=== PATIENT | female | born 1955 | race Caucasian/White ===

== ENCOUNTER 2018-12-27 09:42 | Inpatient (IN) ==
[~2018-12-27 09:42] MED LIST: Total Joint Mixture (50 ml) IR ONE
--- NOTE | 2018-12-27 10:06 | Anesthesia Evaluation PreOp ---
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) Other Medical History: Thyroid (Hypo), Other (Vit D Def.) Anesthesia History: No Prior Anesthetic Complications, Past Anesthesia (S/P R- TKR, MARISELA, D&C, Tubal, Bladder Lift, T&A, Sacrocolpopexy,,) : No Alcohol Use: none Drug use: none Medications and Allergies Levothyroxine [Synthroid] 100 mcg PO QAM 06/24/15 [History] Montelukast [Singulair] 10 mg PO HS 06/24/15 [History] Cholecalciferol (Vitamin D3) [Vitamin D3] 2,000 units PO DAILY 12/27/18 [History] Allergy/AdvReac Type Severity Reaction Status Date / Time azithromycin Allergy Itching Verified 12/27/18 10:07 [From Zithromax Z-Thong] ciprofloxacin [From Cipro] Allergy Difficulty Verified 12/27/18 10:07 Breathing doxycycline Allergy Difficulty Verified 12/27/18 10:07 Breathing hydromorphone [From Dilaudid] Allergy Difficulty Verified 12/27/18 10:07 Breathing oxycodone [From Percocet] Allergy Difficulty Verified 12/27/18 10:07 Breathing propoxyphene Allergy Difficulty Verified 12/27/18 10:07 [From Darvocet-N] Breathing tramadol Allergy Difficulty Verified 12/27/18 10:07 Breathing hydrocodone [From [place]] AdvReac See Verified 12/27/18 10:07 Comments prednisolone AdvReac Swelling Verified 12/27/18 10:07 of the Eye Cxgrdmp-Ign-Esn Reductase AdvReac Muscle Pain Verified 12/27/18 10:07 Inhibitor [Statins] - Meds/Allergy Pre-op Review Medications Reviewed: Yes Allergies Reviewed: Yes Beta Blockers on Current Med List: No Anesthesia Results - Labs Laboratory Tests 12/15/18 12/15/18 12/22/18 11:57 11:57 11:19 WBC 6.8 Hgb 11.6 Hct 37.0 Plt Count 281 INR 1.0 Sodium 139 Potassium 3.7 Chloride 106 Carbon Dioxide 28 BUN 15 Creatinine 0.52 L - Imaging EKG: report reviewed (Sinus tachycardia Inferior infarct, old Electronically Signed On 03-16-2018 16:34:26 EST by Apolinar Deutsch) Additional studies: 04/22/17 Stress EF > 70% No Ischemia -2015 TTE: Impressions: LVEF 60%. Normal LV chamber size, wall thickness and function. Mild left ventricular diastolic dysfunction. Normal right ventricular structure and function. No evidence of pulmonary hypertension. No significant valvular dysfunction. Trace TR, AR, and AR. 2015 Holter: Impression: 1. Baseline rhythm normal sinus. 2. Occasional PVCs and PACS. 3. No symptoms noted. Electronically Signed On 06-28-15 15:25:41 EDT by Javier Wilson 2015 PFT: Conclusion: Spirometry: Restrictive ventilatory impairment without significant br onchodilator response. FVC 2.01, 62 percent predicted and FEV1 1.58 , 63 percent predicted ratio 79. There is bronchodilator response and FEF 25-75% suggesting reactive small airway disease. Lung volumes: Total lung capacity is normal Diffusion: Normal gas exchange, DLCO 19.19 , 83 percent predicted Flow volume loop: Restrictive Anesthesia Exam O2 Sat Height 1.6 m Weight 74.843 kg O2 Sat by Pulse Oximetry 97 Vital Signs Temp Pulse Resp BP Pulse Ox 98.7 F 81 18 134/83 97 12/27/18 10:15 12/27/18 10:15 12/27/18 10:15 12/27/18 10:15 12/27/18 10:15 NPO (# of Hours): > 8 Hrs Pain Scale: 0 Pain Scale Used: Numeric (1 - 10) - HEENT Pupil (Motor): Pupils equal, EOMI Mallampati: III Teeth: Normal Oral Opening: Greater than 3 - [employer] DISTRIBUTOR LOC: Oriented [employer] DISTRI[employer]OR Motor: Normal RUE, Normal LUE, Normal RLE, Normal LLE, Normal Face [employer] DISTRI[employer]OR Sensory: Normal: RUE, LUE, RLE, LLE, Face - Cardiac Rhythm: Regular Murmur: None JVD: No Carotid Bruit: No - Pulmonary Breath Sounds: bilateral Clear Respiratory Effort: Symmetrical Anesthesia Assess/Plan ASA Score: 2 Level of consciousness: Cooperative Anesthetic Plan: General Regional Nerve Block Plan: Adductor canal Autologous Blood: Yes Monitoring Plan: Standard Monitors Recovery Plan: PACU
[2018-12-27] MEDS ORDERED: Albuterol 2.5 MG/3 ML NEBULIZER IH ONE (10:12)
[2018-12-27] MEDS ORDERED: CeFAZolin Syr 2,000MG/20 ML 2,000 MG/20 ML SYRINGE IVPB ONE (10:12)
[2018-12-27] MEDS ORDERED: Ringers Solution, Lactated 1,000 ML IVC SCH ×2 (10:15→15:15)
[2018-12-27] MEDS ORDERED: *HR* OxyCODONE Immed Rel 5 MG TABLET PO PRN (10:26)
[2018-12-27] MEDS ORDERED: *HR* Promethazine 25 MG/ML VIAL IVP PRN ×2 (10:26→15:15)
[2018-12-27] MEDS ORDERED: Ondansetron 4 MG/2 ML VIAL IVP ONE (10:26)
[2018-12-27] MEDS ORDERED: Dexamethasone 4 MG/ML VIAL ONE (10:28)
[2018-12-27] MEDS ORDERED: Lidocaine -MPF 2% 2 ML VIAL ONE (10:28)
[2018-12-27] MEDS ORDERED: Ondansetron 4 MG/2 ML VIAL ONE (10:28)
[2018-12-27] MEDS ORDERED: *HR* Propofol 200 MG/20 ML VIAL IVP ONE (10:28)
[2018-12-27] MEDS ORDERED: *HR* Succinylcholine 200 MG/10 ML VIAL IVP ONE (10:28)
--- NOTE | 2018-12-27 10:46 | History & Physical Report ---
Date of Encounter: 12/27/18 Time of Encounter: 10:46 24 Hour HP Update - Instructions Instructions: If the History and Physical is less than 30 days old and was completed prior to A.M. admission and or procedure and has NOT been updated on calendar day of procedure please complete this update prior to performing procedure. - Update Patient reports changes in Medical Condition: No Changes in examination, assessment, or condition: No Changes in Medication: No Preop tests/diagnostics Reviewed: Yes Surgery Remains Indicated: Yes Consent for Planned Operative Procedure(s) Verified: Yes - Pre-Operative Checklist Preoperative Checklist Indicated: No Prophylactic Antibiotic Ordered: Yes Is VTE Prophylaxis Indicated?: Yes
[2018-12-27] MEDS ORDERED: Ropivacaine/PF 0.5% 30 ML VIAL ONE (10:58)
[2018-12-27] MEDS ORDERED: Ethanol\\Acetic Acid\\Na Ace\\Ben 1,000 ML IRRIG.SOLN IR ONE (11:00)
[2018-12-27] MEDS ORDERED: *HR* Midazolam HCl 2 MG/2 ML VIAL ONE (11:02)
[2018-12-27] MEDS ORDERED: *HR* FentaNYL (PF) 100 MCG/2 ML VIAL ONE ×2 (11:02→12:02)
--- NOTE | 2018-12-27 11:43 | Anesthesia Procedures ---
Date of Encounter: 12/27/18 Time of Encounter: 11:41 Procedures: Anesthesia - Nerve Block Procedure Date: 12/27/18 Time: 11:30 Allergies/Adv Reactions: Allergy/AdvReac Type Severity Reaction Status Date / Time azithromycin Allergy Itching Verified 12/27/18 10:07 [From Zithromax Z-Thong] ciprofloxacin [From Cipro] Allergy Difficulty Verified 12/27/18 10:07 Breathing doxycycline Allergy Difficulty Verified 12/27/18 10:07 Breathing hydromorphone [From Dilaudid] Allergy Difficulty Verified 12/27/18 10:07 Breathing propoxyphene Allergy Difficulty Verified 12/27/18 10:07 [From Darvocet-N] Breathing tramadol Allergy Difficulty Verified 12/27/18 10:07 Breathing hydrocodone [From [place]] AdvReac See Verified 12/27/18 10:07 Comments prednisolone AdvReac Swelling Verified 12/27/18 10:07 of the Eye Xtorrry-Jkc-Gyu Reductase AdvReac Muscle Pain Verified 12/27/18 10:07 Inhibitor [Statins] Surgical Procedure: right total knee revision Checklist: Correct Patient Identifier, Correct procedure, History checked Correct side: Right Blood Thinner: No Monitor Applied: EKG, BP, Pulse Oximetry Supplemental Oxygen via Nasal Cannula (L/min): 2 Sedation: Versed (mg): 2 Sedation: Fentanyl (mcg): 100 Indication: Post Op Analgesia Block Type: Other (adductor canal) Catheter placed: No Sterile Technique: Yes Ultrasound used: Yes Anatomy identified: Yes Visual spread of Local: Yes Blood on Needle Aspiration: No Smooth Injection of Local: Yes Pain with Injection of Local: No Prep: Chlorhexadine Needle: 21 x 100 mm Stimuplex Local: Ropivacaine (and decadron) Volume (cc): 20 Number of Attempts: 1 Complications: None/effective block Vitals: Vital Signs Temperature 98.7 F 12/27/18 10:15 Pulse Rate 81 12/27/18 10:15 Respiratory Rate 18 12/27/18 10:15 Blood Pressure 134/83 12/27/18 10:15 O2 Sat by Pulse Oximetry 97 12/27/18 10:15 Temperature 98.7 F 12/27/18 10:28 Pulse Rate 91 12/27/18 11:40 Respiratory Rate 18 12/27/18 10:28 Blood Pressure 141/78 12/27/18 11:40 O2 Sat by Pulse Oximetry 100 12/27/18 11:40
[2018-12-27] MEDS ORDERED: Tranexamic Acid 1,000 MG/10 ML VIAL ONE (11:55)
--- NOTE | 2018-12-27 11:57 | Physician Discharge Referral ---
ExtendedCare Referral Info Transfer To: [facility] Provider in Charge: Dr Regalado - Diagnosis (1) Status post revision of total replacement of right knee Priority: Primary Status: Acute (2) Painful orthopaedic hardware Priority: Primary Status: Chronic (3) Asthma Priority: Secondary Status: Chronic (4) HLD (hyperlipidemia) Priority: Secondary Status: Chronic (5) Hypothyroidism Priority: Secondary Status: Chronic (6) Acute blood loss anemia Priority: Secondary Status: Acute Expected Duration of Placement: <30 days Prognosis: Good Aware of Diagnosis: Patient Aware of Prognosis: Patient - Transfer Medications Home Medications: Levothyroxine [Synthroid] 100 mcg PO QAM 06/24/15 [History] Montelukast [Singulair] 10 mg PO HS 06/24/15 [History] Aspirin Enteric Coated [Aspirin EC] 325 mg PO BID 10 Days #20 tablet. 12/27/18 [Rx] Cholecalciferol (Vitamin D3) [Vitamin D3] 2,000 units PO DAILY 12/27/18 [History] Docusate Sodium [Colace] 100 mg PO BID 5 Days #10 capsule 12/27/18 [Rx] OxyCODONE Immed Rel [Roxicodone 5 MG] 5 mg PO Q6HR PRN 5 Days #20 tablet 12/27/18 [Rx] Allergies/Adverse Reactions: Allergy/AdvReac Type Severity Reaction Status Date / Time azithromycin Allergy Itching Verified 12/27/18 10:07 [From Zithromax Z-Thong] ciprofloxacin [From Cipro] Allergy Difficulty Verified 12/27/18 10:07 Breathing doxycycline Allergy Difficulty Verified 12/27/18 10:07 Breathing hydromorphone [From Dilaudid] Allergy Difficulty Verified 12/27/18 10:07 Breathing propoxyphene Allergy Difficulty Verified 12/27/18 10:07 [From Darvocet-N] Breathing tramadol Allergy Difficulty Verified 12/27/18 10:07 Breathing hydrocodone [From [place]] AdvReac See Verified 12/27/18 10:07 Comments prednisolone AdvReac Swelling Verified 12/27/18 10:07 of the Eye Rnqgjyw-Pkx-Uzh Reductase AdvReac Muscle Pain Verified 12/27/18 10:07 Inhibitor [Statins] - Respiratory Orders None Smoking Cessation: Smoking cessation has been advised. For more information, call the [place] Tobacco Quit Line at 7-701-ZFNV-NOW. - Ancillary Orders May use pressure relief devices daily prn, May go on PALLAVI w/family/respon constitution party w/meds at nurse discretion PRN, May consult with Dentist, Compugraph Operator, Leaf Sticker PRN - Advance Directives Code Status: Full Code - Mobility Orders Chair, Ambulate - Rehabiliation Orders Rehab Potential: Good Rehab Orders: ROM Exercises, Evaluation for Physical Therapy, Evaluation for Occupational Therapy Other: Opsite dressing, leave intact until first post-operative visit. If dressing becomes >50% saturated, contact office, remove dressing and place appropriate dressing in its place. Do not allow for dressing to get wet. Zipline/Juana in place, plan to remove at post-operative day #14-16. Total Joint Precautions x 6 weeks Apply cold therapy wrap 3-6x/day for 20 minutes at a time. Encourage ambulation throughout the day Use Incentive spirometer 10x/hour. Elevate affected extremity above heart as tolerated. Brace: Wear knee immobilizer at night x 2 weeks. - Treatments Skin tear care topically daily PRN per policy, Fleet enema rectally every other day PRN cleansing purposes - Diet Orders Regular CERTIFICATION: I certify that the transfer of the above named patient to an Extended Care Facility is necessary for the continuing treatment of the diagnosis listed. The above information is true and accurate reflection of patient's current condition. Confidential - Redisclosure prohibited without a patient's written consent.
--- NOTE | 2018-12-27 12:44 | Discharge Summary ---
<Vanita Hairston E - Last Filed: 12/27/18 12:42> Orders not resulted at time of discharge: Pending orders 12/27/18 12:14 Culture,Anaerobic [] Routine Culture,Tissue(Biopsy),w Gr St [] Stat Date of Encounter: 12/27/18 - Hospital Course Hospital course: Ms. Medina is a 63 year old female - Time Spent with Patient Total time spent providing and/or coordinating discharge services: - Discharge Medications Prescriptions: New OxyCODONE Immed Rel [Roxicodone 5 MG] 5 mg PO Q6HR PRN 5 Days #20 tablet PRN Reason: Severe Pain Docusate Sodium [Colace] 100 mg PO BID 5 Days #10 capsule Aspirin Enteric Coated [Aspirin EC] 325 mg PO BID 10 Days #20 tablet. Continued Montelukast [Singulair] 10 mg PO HS Levothyroxine [Synthroid] 100 mcg PO QAM Cholecalciferol (Vitamin D3) [Vitamin D3] 2,000 units PO DAILY Home Medications: Levothyroxine [Synthroid] 100 mcg PO QAM 06/24/15 [History] Montelukast [Singulair] 10 mg PO HS 06/24/15 [History] Aspirin Enteric Coated [Aspirin EC] 325 mg PO BID 10 Days #20 tablet. 12/27/18 [Rx] Cholecalciferol (Vitamin D3) [Vitamin D3] 2,000 units PO DAILY 12/27/18 [History] Docusate Sodium [Colace] 100 mg PO BID 5 Days #10 capsule 12/27/18 [Rx] OxyCODONE Immed Rel [Roxicodone 5 MG] 5 mg PO Q6HR PRN 5 Days #20 tablet 12/27/18 [Rx] Allergies/Adverse Reactions: Allergy/AdvReac Type Severity Reaction Status Date / Time azithromycin Allergy Itching Verified 12/27/18 10:07 [From Zithromax Z-Thong] ciprofloxacin [From Cipro] Allergy Difficulty Verified 12/27/18 10:07 Breathing doxycycline Allergy Difficulty Verified 12/27/18 10:07 Breathing hydromorphone [From Dilaudid] Allergy Difficulty Verified 12/27/18 10:07 Breathing propoxyphene Allergy Difficulty Verified 12/27/18 10:07 [From Darvocet-N] Breathing tramadol Allergy Difficulty Verified 12/27/18 10:07 Breathing hydrocodone [From [place]] AdvReac See Verified 12/27/18 10:07 Comments prednisolone AdvReac Swelling Verified 12/27/18 10:07 of the Eye Ebetulm-Tjc-Thn Reductase AdvReac Muscle Pain Verified 12/27/18 10:07 Inhibitor [Statins] Primary care physician: Grabiel Porras DO - Patient Status Disposition: Home Health Service Condition: Good - Discharge Instructions Follow Up With: Vanita Hairston PAC [Physician Autobody Technician] - 01/06/19 9:00 am Kunal Regalado MD [Partnered Physician] - 01/26/19 5:40 pm Grabiel Porras DO [Primary Care Provider] - Additional Instructions: Discharge Instructions: Total Knee Replacement Please call [facility] ([phone]), your Primary Care Physician, or report to the Emergency Room if you have any of the following symptoms: Nausea, vomiting, fever greater that 101.5, swelling, chest pain, shortness of breath, increased pain/redness/drainage/odor for your incision site, numbness/tingling, or any other concerning symptoms. ACTIVITY:Weight-bearing as tolerated. You may progress off support (crutches or walker) as tolerated. Incentive Spirometer 10 times an hour. MEDICATIONS: Upon discharge resume your home medications. Take all the medications as prescribed. Take a stool softener if taking narcotic pain medications. Stool softeners are only effective if you drink enough fluids. Drink 6-8 glass of water or fluids a day, unless this is not allowed for another health problem. Despite using stool softeners, if you haven't had a bowel movement in 3 days, please switch to a gentle laxative. Gentle laxatives are sold over the counter. You should have a bowel movement within 24 hours, if not call the office. You will be discharged from the hospital with a prescription for pain medication. You are encouraged to decrease the use of narcotic pain medication as tolerated. Should you require a refill, please call the office. [facility] prescribes narcotic pain medication for only 4-6 weeks after surgery. If you require pain medication beyond this time period, you may be referred to your Primary Care Physician or to the Pain Clinic for further evaluation. Plan ahead for refills on pain medication as many narcotics either need to be picked up at the office or mailed. It is best to call 48-72 hours in advance of needing a prescription refill so you don't run out of medication. To help control the post-operative pain, you may take NSAIDs (Aleve,Advil, Motrin, Ibuprofen, Naprosyn) or Tylenol as prescribed on the bottle in addition to the pain medication. ANTICOAGULATION (blood thinners): Continue your Aspirin, Lovenox or Coumadin as prescribed to help prevent a blood clot in the leg or in the lungs. As long as your incision remains dry and you tolerate the NSAIDs (Aleve, Advil, Motrin, ibuprofen, naprosyn), it is OK to use the NSAIDS while you are taking your anticoagulation medication. Should your incision start to drain, stop the NSAID and contact our office. Common symptoms of blood clot in the legs include: localized pain, swelling, calf tenderness, redness or discoloration of the skin. Blood clot in the lung symptoms include: shortness of breath, rapid pulse, sweating, and chest pain that worsens with deep breathing, coughing up blood, lightheadedness, feelings of anxiety. If you experience any of these symptoms notify your physician immediately, go to the emergency room, or if having trouble breathing, call 911. WOUND CARE: Leave the dressing on for 7 to 10days. You may change the dressing if it becomes saturated greater than 50%. Do not get the dressing wet at anytime. Wash your hands with antibacterial soap, rinse and dry prior to any wound care. If you have jessica the visiting nurse or rehab facility can remove the stapes 10-14 days after surgery and place steri-strips across the wound. Leave the steri-strips in place until they fall off on their won. You may let water from the shower run on top of the steri-strips. If you do not have a visiting nurse or rehab facility, you will need to return to the office at 10-14 days for the jessica to be removed. If you have itching or redness around the dressing call the office. FOLLOW-UP: Please follow up with your surgeon in the orthopedic clinic in 4 weeks from the day of surgery. If you have jessica that need to be removed, you will need to come back to the office in 10-14 days from the day of surgery. <Vanita Farfan Shaun - Last Filed: 12/29/18 16:57> - NOTES TO OUTPATIENT PROVIDER Notes to Outpatient Provider: NO KNEE FLEXION, wear brace at all times Orders not resulted at time of discharge: Pending orders 12/27/18 12:14 Culture,Anaerobic [RM] Routine Culture,Tissue(Biopsy),w Gr St [RM] Stat Date of Encounter: 12/29/18 Time of Encounter: 12:30 - Discharge Diagnosis (1) Status post revision of total replacement of right knee Priority: Primary Status: Acute (2) Painful orthopaedic hardware Priority: Primary Status: Chronic (3) Asthma Priority: Secondary Status: Chronic Qualifiers: Asthma severity: unspecified severity Asthma persistence: unspecified Asthma complication type: unspecified Qualified Code(s): J45.909 - Unspecified asthma, uncomplicated (4) HLD (hyperlipidemia) Priority: Secondary Status: Chronic Qualifiers: Hyperlipidemia type: unspecified Qualified Code(s): E78.5 - Hyperlipidemia, unspecified (5) Hypothyroidism Priority: Secondary Status: Chronic Qualifiers: Hypothyroidism type: unspecified Qualified Code(s): E03.9 - Hypothyroidism, unspecified (6) Acute blood loss anemia Priority: Secondary Status: Acute - Hospital Course Hospital course: Ms. Medina is a 63 year old female status post right TKR revision 12/27/18 with medical history of painful right TKR hardware, thyroid disorder, migraines, asthma, HLD. She participated in therapy and progressed very well with recommendation to be released with home therapy but must wear brace at all times with no knee flexion. She did develop postoperative hypotension and anemia for which she received 2 units RBC transfusion POD#1 with improvement. Discussed case with Dr. Regalado and she is stable for discharge at this time. She will follow up in [facility] office next week for reevaluation. PCR - POD#2 s/p right TKR revision robotic 12/27/18 Patient seen at bedside, without complaints. A&O x 3 Afebrile, vital signs stable. Hypotension did resolve/improve. Dressings had minimal bleeding midline, within expectations, no calf tenderness to palpation, good dorsiflexion of foot, sensation intact distally. hinged knee brace locked in extension. NO KNEE FLEXION. Labs reviewed. H/H - .08/09.3 - much improved after received 2 units RBC transfusion 12/27 Pain control: adequate Participating in PT. WBAT, NO KNEE FLEXION, wear brace at all times but may remove for hygiene purposes only. She made significant progress, ambulating well with walker and since has restriction to knee motion will no longer require placement to ECF so recommendation changed to for therapy. All questions and concerns addressed. Educated on use of incentive spirometer. Encouraged ambulation and proper hydration. Patient educated on post-operative restrictions and post-operative care. Assessment and plan: Continue with postoperative care Discharge plan: today - Time Spent with Patient Total time spent providing and/or coordinating discharge services: Date of admission: 12/27/18 15:12 Primary care physician: Grabiel Porras, DO Consults: 12/27/18 15:15 Consult to Nutrition [CONS] Routine Comment: Consulting Provider: NUTRITION Reason for Dietary Consult: Other Other:: Proper nutrition to facilitate wound healing Consult to Occupational Therapy [CONS] Routine Comment: Evaluate, develop and implement POC Reason for Consult: post knee surgery Does patient have active BEDREST order?: No Is patient medically & hemodynamically stable?: Yes Consult to Orthopedic Navigator [CONS] [CONS] Routine Consult to Physical Therapy [CONS] Routine Comment: Evaluate, develop and impliment POC Reason for Consult: post knee surgery Does patient have active BEDREST order?: No Is patient medically & hemodynamically stable?: Yes Consult to [employer] Targeting Supervisor [CONS] Routine Reason for SW Consult: post op joint replacement RT Post Op Consult [CONS] Routine Discharging clinician: Kunal Regalado Anticipated date of discharge: 12/29/18 Labs on day of discharge: Labs from last 24 hours 12/29/18 12/29/18 12/28/18 06:27 06:27 10:29 WBC 8.5 RBC 3.41 L Hgb 9.4 L D Hct 29.3 L MCV 85.9 MCH 27.6 L MCHC 32.1 RDW 15.0 H Plt Count 174 MPV 10.1 Immature Gran % 0.4 Seg Neutrophils % 69.2 Lymphocytes % 16.2 Monocytes % 11.4 Eosinophils % 2.4 Basophils % 0.4 Neutrophils # 5.9 Lymphocytes # 1.4 Monocytes # 1.0 Eosinophils # 0.2 Basophils # 0.0 Sodium 139 Potassium 3.5 Chloride 104 Carbon Dioxide 29 BUN 16 Creatinine 0.56 L Est GFR ( Amer) > 60 Est GFR (Non-Af Amer) > 60 BUN/Creatinine Ratio 29 H Glucose 135 H Calculated Osmolality 291 Calcium 7.8 L Blood Type A POSITIVE Antibody Screen NEGATIVE Crossmatch See Detail Preliminary micro results at discharge 12/27/18 12:14 Surgical Biopsy Culture - Preliminary Right Knee 12/27/18 12:14 Anaerobic Culture - Preliminary Right Knee Culture is incubating. - Impressions ITS Impressions Knee X-Ray 12/27/18 14:35 IMPRESSION: Status post revision arthroplasty of right knee. No acute postoperative complication. D/ / 12/27/2018 15:27:31 Calvin Wilkes MD / bcarter Interpreting Provider: Calvin Wilkes MD - Patient Status Functional capacity at discharge: uses cane/walker Overall status at discharge: patient is progressing back to baseline - Diet and Activity Activity: ambulate only with your walker, as per physical therapy Diet: advance to your usual diet
--- NOTE | 2018-12-27 13:31 | Orthopedic Operative Note ---
Date of procedure: 12/27/18 Pre-op diagnosis: Painful stiff right total knee Post-op diagnosis: same (Patella baja) Procedure: Procedure: Right revision robotic-assisted Total knee replacement, with a patellectomy Estimated blood loss: 200 cc Hardware: Metal and polyethylene replacement. [place] Femur: 3, TS, 5 mm is still medial augment, 16 x 100 stem Tibia: 3, 13 x 100 stem TS insert: 16 Exam Under anesthesia: 3 degree hyperextension 5 degree varus as calculated by the robot flexion limited to 90 degrees, patella baja on x-ray Intra-Op Procedural Notes: Patient with a significant patella baja, loose tibial component Operative procedure: The patient was brought to the operating room and placed on the operating room table. After anesthesia was administered the operative knee was examined. Findings were noted in the exam under anesthesia. The operative extremity was prepped and draped in sterile surgical fashion. The patient received IV antibiotics prior to skin incision. A standard midline incision was made centered over the patella. The incision was made through the old incision, through the skin and subcutaneous tissue. A medial parapatellar tendon approach was performed. Care was taken to preserve tissue along the medial aspect of the patella. And to protect the patella tendon. The lid appeared to be normal joint fluid and was sent for Gram stain and culture. The deep MCL was released off the medial tibia. The infra patella fat pad was excised. The patient had extensive scar tissue, is was excised including significant synovectomy. Patient's patella was in a significant bilateral position. Even after placement of the trial implants with lowering of the joint line the patella still sat and inferior position limiting flexion, patellectomy was performed. Knee was brought into flexion. Steinmann pins were placed in the tibia and the femur for the tibial and femoral arrays respectively. Checkpoints were also placed in the tibia and the femur for calculation purposes. The knee including the femur and the tibial registered. Using careful surgical technique, the interface between the patient's distal femur and femoral component as well as proximal tibial tibial component were used to remove both components without significant bone loss after the poly-was removed. The size 3 femoral guide was seated box cut was made lug holes are drilled. The size 3 tibial tray was seated and prepared with the fin cutter. Trial reduction with a 5 mm distal medial femoral augment with the 16 TS Tyesha revealed extension o3 degrees hyperextensiongree and full flexion. No varus valgus instability. the distal femur was reamed up to a 16 x 100 mm and the proximal tibia was reamed to a 13 x 100 mm for stems. . All trial components were removed all bony surfaces were irrigated. The Tibia was seated followed by the femur, The selected Tyesha size was seated. Patient had similar findings for motion and stability. The knee was closed by the PA. The knee was then irrigated out with 2 L of pulse irrigation. The extensor mechanism was closed with #2 FiberWire suture and #2 PDS suture. The subcutaneous tissue was then irrigated and closed deep with #1 PDS suture superficially with 0 PDS suture and skin was closed with and jessica The patient was then placed in a sterile dressing and a postoperative brace and transferred to recovery room in stable condition. Anesthesia: GETA Surgeon: Kunal Regalado Was there an farm assistant present: No Estimated blood loss (cc): 200 Condition: stable Disposition: PACU
[2018-12-27] MEDS: Morphine Sulfate 2 MG/ML SYRINGE IVP PRN ×4 (14:28→14:55)
--- NOTE | 2018-12-27 15:09 | Anesthesia Evaluation Post Op ---
Date of Encounter: 12/27/18 Time of Encounter: 15:08 - Vital Signs Vital Signs: Vital Signs/O2 Sat, Most Current Temp Pulse Resp BP Pulse Ox 98.2 F 110 14 121/71 95 12/27/18 14:40 12/27/18 15:00 12/27/18 15:00 12/27/18 15:00 12/27/18 15:00 - Lungs Lungs: Clear Ascult./Percussion - Airway Airway: Non-obstructed - Cardiovascular Regular Rate - Mental Status Mental Status: Alert & Oriented, Answers Appropriately - Pain Pain Scale: 5 Pain Scale used: Numeric (1 - 10) - Nausea Vomiting Nausea Vomiting: Not Present - Hydration Hydration: Ice chips, Has not voided - Discharge PostOp Status: Transfer Patient to floor
[2018-12-27] MEDS ORDERED: *HR* OxyCODONE/APAP 5/325 TABLET PO PRN (15:15)
[2018-12-27] MEDS ORDERED: Sennosides 8.6 MG TABLET PO PRN (15:15)
[2018-12-27] MEDS ORDERED: MOM Conc 10 ML UD.LIQ PO PRN (15:15)
[2018-12-27] MEDS ORDERED: Temazepam 15 MG CAPSULE PO PRN (15:15)
[2018-12-27] MEDS ORDERED: Naloxone 0.4 MG/ML INJ IVP PRN (15:15)
[2018-12-27] MEDS ORDERED: Ondansetron 4 MG/2 ML VIAL IVP PRN (15:15)
[2018-12-27 15:20] LABS: Hematocrit 30.9 % (35.3-44.9)
[2018-12-27 15:28] LABS: Hemoglobin 9.7 g/dL (11.5-15.4)
[2018-12-27] MEDS: *HR* Enoxaparin 30 MG/0.3 ML SYRINGE SQ SCH (17:10)
[2018-12-27] MEDS: Ascorbic Acid 500 MG TABLET PO SCH (17:10)
[2018-12-27] MEDS ORDERED: *HR* Enoxaparin 30 MG/0.3 ML SYRINGE SQ SCH (18:00)
[2018-12-28] MEDS: *HR* Enoxaparin 30 MG/0.3 ML SYRINGE SQ SCH ×2 (04:55→18:12)
[2018-12-28 05:41] LABS: Basophils % 0.1 %; Hematocrit 25.3 % (35.3-44.9); Immature Granulocytes % 0.5 % (0-4); Lymphocytes # 1.3 K/mcL (0.6-4.6); Lymphocytes % 11.1 %; Mean Corpuscular HGB Conc 31.2 g/dL (31.6-35.5); Mean Corpuscular Volume 89.7 fL (83.0-100.0); Mean Platelet Volume 9.9 fL (9.4-12.4); Monocytes # 0.9 K/mcL (0.0-1.3); Monocytes % 8.1 %; Neutrophils # 9.1 K/mcL (1.6-8.9); Platelet Count 221 K/mcL (140-400); Red Blood Count 2.82 M/mcL (3.82-4.97); Segmented Neutrophils % 80.2 %
[2018-12-28 05:42] LABS: Hemoglobin 7.9 g/dL (11.5-15.4); White Blood Count 11.4 K/mcL (4.3-11.1)
[2018-12-28 06:03] LABS: BUN/Creatinine Ratio 22 (6-26); Blood Urea Nitrogen 13 mg/dL (8-23); Calcium 8.1 mg/dL (8.6-10.3); Carbon Dioxide 26 mEq/L (23-29); Chloride 104 mEq/L (98-107); Glucose 153 mg/dL (70-105); Osmolality,Calculated 287 (280-300); Potassium 4.2 mEq/L (3.5-5.1); Sodium 137 mEq/L (136-145); eGFR For African Americans > 60 (> 60); eGFR For Non-African Americans > 60 (> 60)
[2018-12-28] MEDS ORDERED: Furosemide 20 MG/2 ML VIAL IVP ONE (06:06)
--- NOTE | 2018-12-28 06:22 | Orthopedics Progress Note ---
Date of Encounter: 12/28/18 Time of Encounter: 06:22 - Assessment and Plan (1) Acute blood loss anemia Current Visit: No Status: Acute Subjective Interval history: Patient was seen this morning doing well without complaints. Afebrile vital signs stable. Hypotensive Operative extremity: Neurovascularly intact Dressing clean dry and intact Calves nontender Assessment and plan: Continue with postoperative care Hemoglobin 7.9 transfuse 2 units Objective Vital signs: Vital Signs Temp Pulse Resp BP Pulse Ox 12/28/18 02:58 98/61 12/28/18 02:56 98.3 F 82 16 96/60 93 12/27/18 23:14 112/67 12/27/18 23:10 98.5 F 88 16 96/62 97 12/27/18 21:53 95 12/27/18 18:30 97.9 F 90 16 100/66 97 12/27/18 18:20 97.8 F 92 16 105/68 98 12/27/18 17:20 97.9 F 104 18 101/68 96 12/27/18 16:20 98.5 F 110 16 101/62 98 12/27/18 15:50 98.6 F 113 16 102/62 99 12/27/18 15:45 98 12/27/18 15:20 98.3 F 105 16 113/65 100 12/27/18 15:10 98.3 F 110 14 130/71 100 12/27/18 15:00 110 14 121/71 95 12/27/18 14:50 106 16 128/90 99 12/27/18 14:40 98.2 F 108 14 130/72 99 12/27/18 14:30 110 14 130/76 99 12/27/18 14:20 110 16 131/74 98 12/27/18 14:10 97.6 F 99 16 134/76 99 12/27/18 11:40 91 141/78 100 12/27/18 11:34 89 163/84 98 12/27/18 10:28 98.7 F 81 18 134/83 97 12/27/18 10:15 98.7 F 81 18 134/83 97 Intake and Output 12/27/18 12/27/18 12/28/18 15:59 23:59 07:59 Intake Total 750 / 750 450 / 450 Output Total 200 / 200 0 / 200 0 / 0 Balance -200 / 550 750 / 550 450 / 450 Intake: IV Fluids 100 / 100 100 / 100 Ancef 2,000 MG In 0.9 % Sodium 100 / 100 100 / 100 Chloride 100 ML @ 200 mls/hr IVPB Q8HR MÓNICA Rx#:[id number] Oral 650 / 650 350 / 350 Output: Urine 0 / 0 0 / 0 Estimated Blood Loss 200 / 200 Other: Meal Dinner Percent of Meal Consumed 5% # Voids 1 1 Weight 74.843 kg - Labs CBC & BMP: 12/28/18 05:24 12/28/18 05:24 Labs: Abnormal lab results WBC 11.4 K/mcL (4.3-11.1) H D 12/28/18 05:24 RBC 2.82 M/mcL (3.82-4.97) L 12/28/18 05:24 Hgb 7.9 g/dL (11.5-15.4) L D 12/28/18 05:24 Hct 25.3 % (35.3-44.9) L 12/28/18 05:24 MCHC 31.2 g/dL (31.6-35.5) L 12/28/18 05:24 RDW 15.0 % (11.5-14.5) H 12/28/18 05:24 Neutrophils # 9.1 K/mcL (1.6-8.9) H 12/28/18 05:24 Creatinine 0.58 mg/dL (0.60-1.20) L 12/28/18 05:24 Glucose 153 mg/dL (70-105) H 12/28/18 05:24 Calcium 8.1 mg/dL (8.6-10.3) L 12/28/18 05:24 Consult Discharge Plan - Plan Referrals: Grabiel Porras DO [Primary Care Provider] -
[2018-12-28] MEDS: Ascorbic Acid 500 MG TABLET PO SCH ×2 (08:13→16:26)
[2018-12-28] MEDS: Multivit/Ca/Min/Fe/FA 1 TAB TABLET PO SCH (08:13)
[2018-12-28] MEDS: Cholecalciferol (D-3) 1,000 UNIT (25MCG) TABLET PO SCH (08:13)
[2018-12-28] MEDS ORDERED: 0.9 % Sodium Chloride 250 ML ONE ×2 (11:37→15:20)
--- NOTE | 2018-12-28 16:11 | Event Note ---
Date of Encounter: 12/28/18 Time of Encounter: 12:40 PCR - POD#1 s/p right TKR revision robotic 12/27/18 Patient seen at bedside, without complaints. A&O x 3 Afebrile, vital signs stable except for hypotension - asymptomatic currently. Dressings c/d/i, no calf tenderness to palpation, good dorsiflexion of foot, s ensation intact distally. Nursing instructed to remove bulky postop dressings now. hinged knee brace locked in extension. NO KNEE FLEXION. Labs reviewed. H/H - 7.9/25.3 - receiving 2 units RBC transfusion Pain control: adequate Participating in PT. WBAT, NO KNEE FLEXION, wear brace at all times but may remove for hygiene purposes only. All questions and concerns addressed. Educated on use of incentive spirometer. Encouraged ambulation and proper hydration. Patient educated on post-operative restrictions and post-operative care. Assessment and plan: Continue with postoperative care Discharge plan: ECF when medically cleared
[2018-12-28] MEDS: *HR* OxyCODONE Immed Rel 5 MG TABLET PO PRN ×2 (16:26→22:36)
[2018-12-29] MEDS: *HR* OxyCODONE Immed Rel 5 MG TABLET PO PRN ×3 (04:26→14:42)
[2018-12-29 06:53] LABS: Basophils % 0.4 %; Eosinophils # 0.2 K/mcL (0.0-0.6); Eosinophils % 2.4 %; Hematocrit 29.3 % (35.3-44.9); Hemoglobin 9.4 g/dL (11.5-15.4); Immature Granulocytes % 0.4 % (0-4); Lymphocytes # 1.4 K/mcL (0.6-4.6); Lymphocytes % 16.2 %; Mean Corpuscular HGB Conc 32.1 g/dL (31.6-35.5); Mean Corpuscular Hemoglobin 27.6 pg (28.0-33.3); Mean Corpuscular Volume 85.9 fL (83.0-100.0); Mean Platelet Volume 10.1 fL (9.4-12.4); Monocytes % 11.4 %; Neutrophils # 5.9 K/mcL (1.6-8.9); Platelet Count 174 K/mcL (140-400); Red Blood Count 3.41 M/mcL (3.82-4.97); Segmented Neutrophils % 69.2 %; White Blood Count 8.5 K/mcL (4.3-11.1)
[2018-12-29 07:14] LABS: BUN/Creatinine Ratio 29 (6-26); Blood Urea Nitrogen 16 mg/dL (8-23); Calcium 7.8 mg/dL (8.6-10.3); Carbon Dioxide 29 mEq/L (23-29); Chloride 104 mEq/L (98-107); Glucose 135 mg/dL (70-105); Osmolality,Calculated 291 (280-300); Potassium 3.5 mEq/L (3.5-5.1); Sodium 139 mEq/L (136-145); eGFR For African Americans > 60 (> 60); eGFR For Non-African Americans > 60 (> 60)
[2018-12-29] MEDS: *HR* Enoxaparin 30 MG/0.3 ML SYRINGE SQ SCH (07:23)
[2018-12-29] MEDS: Cholecalciferol (D-3) 1,000 UNIT (25MCG) TABLET PO SCH (08:53)
[2018-12-29] MEDS: Multivit/Ca/Min/Fe/FA 1 TAB TABLET PO SCH (08:53)
[2018-12-29] MEDS: Ascorbic Acid 500 MG TABLET PO SCH (08:53)
[2018-12-29 12:50] VITALS: BP 123/78
--- NOTE | 2018-12-29 13:34 | Physician Discharge Referral ---
Home Health/Hosp Referral Info Transfer to: Home Health Attending Provider: Dr. Regalado - Diagnosis (1) Status post revision of total replacement of right knee Priority: Primary Status: Acute (2) Painful orthopaedic hardware Priority: Primary Status: Chronic (3) Asthma Priority: Secondary Status: Chronic (4) HLD (hyperlipidemia) Priority: Secondary Status: Chronic (5) Hypothyroidism Priority: Secondary Status: Chronic (6) Acute blood loss anemia Priority: Secondary Status: Acute - Respiratory Orders Smoking Cessation: Smoking cessation has been advised. For more information, call the [place] Tobacco Quit Line at 7-168-VLMV-NOW. - Diet/Nutrition Diet/Nutrition Orders: Regular - Activity Activity Orders: Ambulate, Chair, Walker - Services Needed Following services are medically necessary services: Nursing, Home Health Aide, Physical Therapy, Occupational Therapy Home Care Orders: Opsite dressing, leave intact until first post-operative visit. If dressing becomes >50% saturated, contact office, remove dressing and place appropriate dressing in its place. Do not allow for dressing to get wet. Zipline/[place] in place, plan to remove at post-operative day #14-16. Total Joint Precautions x 6 weeks Apply cold therapy wrap 3-6x/day for 20 minutes at a time. Encourage ambulation throughout the day Use Incentive spirometer 10x/hour. Elevate affected extremity above heart as tolerated. Brace: Must wear hinged knee brace at all times with NO KNEE FLEXION. may remove brace for hygiene purposes only. WBAT - Transfer Medications Home Medications: Levothyroxine [Synthroid] 100 mcg PO QAM 06/24/15 [History] Montelukast [Singulair] 10 mg PO HS 06/24/15 [History] Aspirin Enteric Coated [Aspirin EC] 325 mg PO BID 10 Days #20 tablet. 12/27/18 [Rx] Cholecalciferol (Vitamin D3) [Vitamin D3] 2,000 units PO DAILY 12/27/18 [History] Docusate Sodium [Colace] 100 mg PO BID 5 Days #10 capsule 12/27/18 [Rx] OxyCODONE Immed Rel [Roxicodone 5 MG] 5 mg PO Q6HR PRN 5 Days #20 tablet 12/27/18 [Rx] Allergies/Adverse Reactions: Allergy/AdvReac Type Severity Reaction Status Date / Time azithromycin Allergy Itching Verified 12/27/18 10:07 [From Zithromax Z-Thong] ciprofloxacin [From Cipro] Allergy Difficulty Verified 12/27/18 10:07 Breathing doxycycline Allergy Difficulty Verified 12/27/18 10:07 Breathing hydromorphone [From Dilaudid] Allergy Difficulty Verified 12/27/18 10:07 Breathing propoxyphene Allergy Difficulty Verified 12/27/18 10:07 [From Darvocet-N] Breathing tramadol Allergy Difficulty Verified 12/27/18 10:07 Breathing hydrocodone [From [place]] AdvReac See Verified 12/27/18 10:07 Comments prednisolone AdvReac Swelling Verified 12/27/18 10:07 of the Eye [place] Reductase AdvReac Muscle Pain Verified 12/27/18 10:07 Inhibitor [Statins] Certification: Further, I certify that my clinical findings support that this patient is homebound (i.e. absences from home require considerable and taxing effort and are for medical reasons or hindu services or infrequently or short duration when for other reasons) because: Homebound Reason: Post-surgery restriction and or conditions limit ability to leave home Attestation: My signature below is to certify that this patient is under my care and that I, or nurse practitioner, or a physician ward assistant working with me, has a [id number] encounter with this patient.
== END 2018-12-29 14:59 | disposition home health service (06) | DRG 302 ==
LOC: SAMDAY 09:42 → 3NENU 15:12
PROVIDERS: ADMIT Orthopaedic Surgery; ATTEND Orthopaedic Surgery

== ENCOUNTER 2019-03-29 17:12 | Inpatient (IN) ==
[2019-03-29] MEDS ORDERED: *HR* FentaNYL (PF) 100 MCG/2 ML VIAL IVP ONE ×2 (17:58→20:07)
[2019-03-29 18:31] LABS: Basophils % 0.3 %; Eosinophils # 0.1 K/mcL (0.0-0.6); Eosinophils % 0.7 %; Hematocrit 39.2 % (35.3-44.9); Hemoglobin 12.3 g/dL (11.5-15.4); Immature Granulocytes % 0.7 % (0-4); Lymphocytes # 1.8 K/mcL (0.6-4.6); Lymphocytes % 14.2 %; Mean Corpuscular HGB Conc 31.4 g/dL (31.6-35.5); Mean Corpuscular Hemoglobin 27.7 pg (28.0-33.3); Mean Corpuscular Volume 88.3 fL (83.0-100.0); Mean Platelet Volume 9.7 fL (9.4-12.4); Monocytes % 8.1 %; Neutrophils # 9.4 K/mcL (1.6-8.9); Platelet Count 305 K/mcL (140-400); Red Blood Count 4.44 M/mcL (3.82-4.97); Red Cell Distribution Width 14.4 % (11.5-14.5); White Blood Count 12.4 K/mcL (4.3-11.1)
[2019-03-29 18:40] LABS: Prothrombin Time 11.5 Seconds (9.4-12.1)
[2019-03-29 18:48] LABS: BUN/Creatinine Ratio 35 (6-26); Blood Urea Nitrogen 19 mg/dL (8-23); Calcium 8.9 mg/dL (8.6-10.3); Carbon Dioxide 26 mEq/L (23-29); Chloride 104 mEq/L (98-107); Glucose 102 mg/dL (70-105); Osmolality,Calculated 288 (280-300); Potassium 4.2 mEq/L (3.5-5.1); Sodium 138 mEq/L (136-145); eGFR For African Americans > 60 (> 60); eGFR For Non-African Americans > 60 (> 60)
[2019-03-30] MEDS ORDERED: Naloxone 0.4 MG/ML INJ IVP PRN (02:03)
[2019-03-30] MEDS ORDERED: 0.9 % Sodium Chloride 1,000 ML IVC SCH (02:15)
[2019-03-30] MEDS: *HR* OxyCODONE Immed Rel 5 MG TABLET PO PRN ×3 (02:22→21:34)
[2019-03-30] MEDS ORDERED: tiZANidine 4 MG TABLET PO ONE (04:40)
[2019-03-30 05:18] LABS: Bilirubin,Urine Negative (Negative); Blood,Urine Negative (Negative); Clarity,Urine Cloudy (Clear); Color,Urine Yellow (Yellow); Glucose,Urine (UA) Normal (Normal); Ketones,Urine Negative (Negative); Leukocyte Esterase,Urine Negative (Negative); Nitrite,Urine Negative (Negative); PH,Urine 7.5 pH Units (5.0-8.0); Protein,Urine Negative (Neg-Trace); Specific Gravity,Urine 1.022 (1.010-1.025); Urobilinogen,Urine Normal (Normal)
[2019-03-30 05:35] LABS: Hyaline Casts,Urine None Seen per lpf (None-Few); Squamous Epithelial Cell,Urine Moderate per lpf (None-Few); WBC,Urine 0-3 per hpf (0-3)
[2019-03-30 05:47] LABS: Amorphous Sediment,Urine Few per hpf (Few); Bacteria,Urine Many per hpf (None-Few)
[2019-03-30 06:33] LABS: Hematocrit 35.9 % (35.3-44.9); Hemoglobin 11.3 g/dL (11.5-15.4); Mean Corpuscular HGB Conc 31.5 g/dL (31.6-35.5); Mean Corpuscular Hemoglobin 27.6 pg (28.0-33.3); Mean Corpuscular Volume 87.6 fL (83.0-100.0); Mean Platelet Volume 9.5 fL (9.4-12.4); Platelet Count 242 K/mcL (140-400); Red Cell Distribution Width 14.3 % (11.5-14.5); White Blood Count 12.1 K/mcL (4.3-11.1)
[2019-03-30 06:54] LABS: BUN/Creatinine Ratio 29 (6-26); Blood Urea Nitrogen 14 mg/dL (8-23); Calcium 8.4 mg/dL (8.6-10.3); Carbon Dioxide 27 mEq/L (23-29); Chloride 99 mEq/L (98-107); Chol/HDL Ratio 3.2 (0-4.9); Cholesterol 161 mg/dL (< 200); Glucose 130 mg/dL (70-105); HDL Cholesterol 51 mg/dL (40-59); LDL Cholesterol,Calculated 95 mg/dL (0-99); Osmolality,Calculated 282 (280-300); Phosphorous 3.8 mg/dL (2.7-4.5); Potassium 4.1 mEq/L (3.5-5.1); Sodium 135 mEq/L (136-145); Triglycerides 74 mg/dL (< 150); eGFR For African Americans > 60 (> 60); eGFR For Non-African Americans > 60 (> 60)
[2019-03-30] MEDS: Ondansetron 4 MG/2 ML VIAL IVP PRN (11:34)
[2019-03-31] MEDS: Acetaminophen 325 MG TABLET PO PRN ×2 (00:25→21:00)
[2019-03-31 05:10] LABS: Hemoglobin 11.8 g/dL (11.5-15.4); Mean Corpuscular HGB Conc 31.9 g/dL (31.6-35.5); Mean Corpuscular Hemoglobin 27.3 pg (28.0-33.3); Mean Corpuscular Volume 85.5 fL (83.0-100.0); Mean Platelet Volume 9.9 fL (9.4-12.4); Platelet Count 283 K/mcL (140-400); Red Blood Count 4.33 M/mcL (3.82-4.97); Red Cell Distribution Width 14.3 % (11.5-14.5); White Blood Count 9.8 K/mcL (4.3-11.1)
[2019-03-31 05:22] LABS: BUN/Creatinine Ratio 31 (6-26); Blood Urea Nitrogen 19 mg/dL (8-23); Calcium 8.4 mg/dL (8.6-10.3); Carbon Dioxide 28 mEq/L (23-29); Chloride 100 mEq/L (98-107); Glucose 118 mg/dL (70-105); Osmolality,Calculated 287 (280-300); Sodium 137 mEq/L (136-145); eGFR For African Americans > 60 (> 60); eGFR For Non-African Americans > 60 (> 60)
[2019-03-31] MEDS: *HR* OxyCODONE Immed Rel 5 MG TABLET PO PRN ×2 (06:35→17:37)
[2019-03-31] MEDS: Cholecalciferol (D-3) 1,000 UNIT (25MCG) TABLET PO SCH (08:12)
[2019-03-31] MEDS ORDERED: *HR* Propofol 200 MG/20 ML VIAL IVP ONE (14:27)
[2019-03-31] MEDS ORDERED: *HR* FentaNYL (PF) 100 MCG/2 ML VIAL ONE (14:27)
[2019-03-31] MEDS ORDERED: *HR* Midazolam HCl 2 MG/2 ML VIAL ONE (14:28)
[2019-03-31] MEDS ORDERED: *HR* Succinylcholine 200 MG/10 ML VIAL IVP ONE (14:28)
[2019-03-31] MEDS ORDERED: *HR* Rocuronium Bromide 50 MG/5 ML VIAL ONE (14:28)
[2019-03-31] MEDS ORDERED: Lidocaine -MPF 2% 2 ML VIAL ONE (14:28)
[2019-03-31] MEDS ORDERED: Dexamethasone 4 MG/ML VIAL ONE (14:28)
[2019-03-31] MEDS ORDERED: Ondansetron 4 MG/2 ML VIAL ONE (14:28)
[2019-03-31] MEDS ORDERED: Morphine Sulfate 2 MG/ML SYRINGE IVP PRN (14:36)
[2019-03-31] MEDS ORDERED: Clindamycin 900 MG/50 ML 900 MG/50 ML IV.SOLN IVPB ONE (14:41)
[2019-03-31 16:50] LABS: Hematocrit 37.8 % (35.3-44.9); Hemoglobin 11.8 g/dL (11.5-15.4)
[2019-03-31] MEDS ORDERED: Acetaminophen IV 1,000 MG/100 ML INFUS..BTL IVPB ONE (16:54)
[2019-03-31] MEDS ORDERED: Sennosides/Docusate Sodium TABLET PO PRN (20:59)
[2019-04-01] MEDS: Clindamycin 900 MG/50 ML 900 MG/50 ML IV.SOLN IVPB SCH ×2 (04:06→12:19)
[2019-04-01] MEDS: *HR* OxyCODONE Immed Rel 5 MG TABLET PO PRN ×5 (04:15→21:43)
[2019-04-01 05:34] LABS: Hematocrit 37.7 % (35.3-44.9); Mean Corpuscular HGB Conc 31.8 g/dL (31.6-35.5); Mean Corpuscular Volume 87.9 fL (83.0-100.0); Mean Platelet Volume 9.9 fL (9.4-12.4); Platelet Count 255 K/mcL (140-400); Red Blood Count 4.29 M/mcL (3.82-4.97); Red Cell Distribution Width 14.1 % (11.5-14.5)
[2019-04-01] MEDS: Cholecalciferol (D-3) 1,000 UNIT (25MCG) TABLET PO SCH (08:52)
[2019-04-01] MEDS: Ondansetron 4 MG/2 ML VIAL IVP PRN (15:25)
[2019-04-01] MEDS: Sennosides/Docusate Sodium TABLET PO SCH (21:44)
[2019-04-02 01:45] LABS: Hematocrit 35.6 % (35.3-44.9); Hemoglobin 11.4 g/dL (11.5-15.4); Mean Corpuscular Hemoglobin 27.4 pg (28.0-33.3); Mean Corpuscular Volume 85.6 fL (83.0-100.0); Mean Platelet Volume 9.6 fL (9.4-12.4); Platelet Count 255 K/mcL (140-400); Red Blood Count 4.16 M/mcL (3.82-4.97); Red Cell Distribution Width 14.3 % (11.5-14.5); White Blood Count 9.6 K/mcL (4.3-11.1)
[2019-04-02] MEDS: *HR* OxyCODONE Immed Rel 5 MG TABLET PO PRN ×2 (04:03→08:11)
[2019-04-02] MEDS: Sennosides/Docusate Sodium TABLET PO SCH ×2 (07:51→20:24)
[2019-04-02] MEDS: Cholecalciferol (D-3) 1,000 UNIT (25MCG) TABLET PO SCH (07:51)
[2019-04-02] MEDS: Acetaminophen 325 MG TABLET PO PRN ×2 (07:53→18:14)
[2019-04-03] MEDS ORDERED: Ketorolac 15 MG/ML VIAL IVP PRN (08:29)
[2019-04-03] MEDS: Cholecalciferol (D-3) 1,000 UNIT (25MCG) TABLET PO SCH (09:15)
[2019-04-03] MEDS: Sennosides/Docusate Sodium TABLET PO SCH ×2 (09:15→21:51)
[2019-04-03] MEDS ORDERED: Ibuprofen 600 MG TABLET PO PRN (11:51)
[2019-04-04] MEDS: Sennosides/Docusate Sodium TABLET PO SCH ×2 (09:58→20:45)
[2019-04-04] MEDS: Cholecalciferol (D-3) 1,000 UNIT (25MCG) TABLET PO SCH (09:58)
[2019-04-05] MEDS: Sennosides/Docusate Sodium TABLET PO SCH (08:50)
[2019-04-05] MEDS: Cholecalciferol (D-3) 1,000 UNIT (25MCG) TABLET PO SCH (08:50)
[2019-04-05 11:47] VITALS: BP 117/76
== END 2019-04-05 15:57 | disposition home health service (06) | DRG 308 ==
LOC: EMEROOARM 17:12 → 3NENU 17:12 → SUATTDRO 03-30 02:03
PROVIDERS: ADMIT Internal Medicine; ATTEND Student in an Organized Health Care Education/Training Program